=== PATIENT | male | born 1960 | race Caucasian/White ===

== ENCOUNTER → 2024-01-04 11:53 | Outpatient (CLI) | payer OTHER, SELFPAY ==
--- NOTE | 2024-01-04 11:57 | DI.MRI.S_ITS ---
PROCEDURE: MR WRIST RT WO CON INDICATIONS: Pain in right wrist TECHNIQUE: Noncontrast coronal proton density fast spin echo and T2 fast spin echo with fat saturation; coronal 3-D gradient echo, axial T1 spin echo and T2 fast spin echo with fat saturation, sagittal T1 spin echo through the wrist. COMPARISON: [facility], CR, XR WRIST 3+ VIEWS RIGHT, 12/20/2023, 14:08. FINDINGS: Image quality: Excellent. Bones and cartilage: Subacute to chronic appearing fracture through base of ulnar styloid is seen with well corticated margin along fracture site and extensive edema involving distal ulnar and fractured ulnar styloid fragment. Adjacent soft tissue edema and swelling is also noted. No other fracture or dislocation. No evidence of avascular necrosis. Mild wrist joint osteoarthritic changes are seen most notably involving triscaphe joint. Carpal ligaments: The scapholunate and lunotriquetral ligaments appear intact. In the absence of intra-articular contrast, the extrinsic carpal ligaments are not well identified. On sagittal images, the pisohamate ligament appears intact. Triangular fibrocartilage complex: There is suggestion of triangular fibrocartilage tear near its ulnar insertion with heterogeneous T2 hyperintense signal and small amount of fluid within distal radial ulnar joint space. The extensor carpi ulnaris tendon is thickened with intrasubstance T2 hyperintense signal at the level of ulnar styloid. Tendons and soft tissues: The carpal tunnel structures appear normal, including the median nerve. The ulnar nerve appears normal within Guyon's canal. All six extensor tendon compartments demonstrate normal morphology, without pathologic tendon sheath fluid. No soft tissue ganglion cysts. IMPRESSION: 1. Subacute to chronic appearing fracture through base of ulnar styloid with suggestion of delayed union or nonunion at fracture site. There is also suggestion of pseudoarthrosis at fracture site with adjacent edema. No acute fracture or dislocation. Mild wrist joint osteoarthritis. No evidence of avascular necrosis. 2. Suggestion of triangular fibrocartilage tear near its ulnar insertion. 3. Low to moderate grade intrasubstance partial-thickness tear involving extensor carpi ulnaris tendon at the level of ulnar styloid. 4. Scapholunate and lunotriquetral ligaments are intact. Dictated by: Bennett Mooney M.D. on 01/04/2024 at 15:57 Approved by: Bennett Mooney M.D. on 01/04/2024 at 16:01
== END ==
PROVIDERS: Referring Provider Orthopaedic Surgery; Visit Provider Orthopaedic Surgery
DX: S52.611A Displaced fracture of right ulna styloid process, initial encounter for closed fracture (principal); M25.531 Pain in right wrist
CPT/HCPCS: 73221

== ENCOUNTER → 2025-05-16 11:57 | Outpatient (CLI) | payer OTHER, SELFPAY ==
--- NOTE | 2025-05-16 | DI.MRI.S_ITS ---
PROCEDURE: MR HEAD/BRAIN WO CON INDICATIONS: Headache, unspecified TECHNIQUE: Non-contrast axial T1 spin echo, axial T2 fast spin echo, sagittal and axial FLAIR, coronal T2 fast spin echo, axial gradient echo, axial diffusion and ADC through the brain. COMPARISON: None. FINDINGS: Image quality: Excellent. CSF spaces: Ventricles appear symmetric in size and shape. Basal cisterns are patent. No extra-axial fluid collections. Brain: Diffuse bilateral dural prominent most pronounced over the frontal lobes. Dural thickening demonstrates isointense T1 signal, hyperintense T2 signal and hyperintense FLAIR signal. No significant susceptibility artifact tissue associated with the dural thickening. No intracranial mass effects. There is cerebral volume loss for age. There are periventricular and deep white matter chronic small vessel ischemic changes. Brainstem appears normal. Diffusion-weighted images show no acute infarct. No chronic ischemic insults. Normal intravascular flow voids are present. Skull and face: Calvarial bone marrow is normal in signal. Orbits are normal. Sinuses: Sinuses and mastoids are clear. IMPRESSION: Dural thickening. Finding is nonspecific but could reflect hypertrophic pachymeningitis, dural metastatic disease or intracranial hypotension with subdural hematoma is considered less likely given absence of susceptibility artifact. Recommend correlation with clinical data and MRI of the brain with contrast Dictated by: Ny Cordova MD, PhD on 05/16/2025 at 12:45 Approved by: Ny Cordova MD, PhD on 05/16/2025 at 12:58
== END ==
LOC: MRI 11:58
PROVIDERS: PCP Family Medicine; Referring Provider Family Medicine; Visit Provider Family Medicine
DX: R51.9 Headache, unspecified (principal)
CPT/HCPCS: 70551